=== PATIENT | male | born 1965 | race Caucasian/White ===

== ENCOUNTER 2024-04-13 19:14 | Emergency (ER) | payer MEDICAID ==
[~2024-04-13] VITALS: Ht 177.8 cm; Wt 68.8 kg
[~2024-04-13 19:14] MED LIST: NICO-687 TD; NO HOME MEDS
[2024-04-13 19:29] LABS: BASOPHILS # (AUTO) 0.1 X10'3 (0-0.2); BASOPHILS % (AUTO) 0.7 % (0-1); EOSINOPHILS # (AUTO) 0.1 X10'3 (0-0.9); EOSINOPHILS % (AUTO) 1.2 % (0-6); HEMATOCRIT 46.5 % (42.0-52.0); HEMOGLOBIN 15.9 g/dl (14.0-17.9); LYMPHOCYTES # (AUTO) 2.5 X10'3 (1.1-4.8); LYMPHOCYTES % (AUTO) 33.8 % (21-51); MEAN CORPUSCULAR HEMOGLOBIN 32.5 PG (27.0-31.0); MEAN CORPUSCULAR HGB CONC 34.3 g/dL (33.0-36.5); MEAN CORPUSCULAR VOLUME 94.8 FL (78-98); MEAN PLATELET VOLUME 7.1 FL (7.4-10.4); MONOCYTES # (AUTO) 0.6 X10'3 (0-0.9); MONOCYTES % (AUTO) 7.9 % (2-12); NEUTROPHILS # (AUTO) 4.2 X10'3 (1.8-7.7); NEUTROPHILS % (AUTO) 56.4 % (42-75); PLATELET COUNT 268 X10'3 (140-440); RED CELL DISTRIBUTION WIDTH 14.4 % (11.5-14.5); WHITE BLOOD COUNT 7.5 X10'3 (4.5-11.0)
[2024-04-13 19:35] VITALS: TEMP 98
[2024-04-13 19:49] LABS: ALBUMIN 3.4 G/DL (3.4-5.0); ANION GAP 10 (8-16); BLOOD UREA NITROGEN 2 MG/DL (7-18); BUN/CREATININE RATIO 2.8 (10.0-20.0); CHLORIDE 97 MMOL/L (99-107); CREATININE 0.72 MG/DL (0.60-1.10); POTASSIUM 3.6 MMOL/L (3.5-5.1); PRO BRAIN NATRIURETIC PEPTIDE < 30 PG/ML (0-125); SODIUM 134 MMOL/L (135-145); eCRCL 106 ML/MIN; eGFR > 90 ML/MIN
[2024-04-13 19:50] LABS: GLUCOSE 116 MG/DL (70-104)
[2024-04-13 20:01] LABS: ETHANOL 244 MG/DL (<10)
[2024-04-13] MEDS: meclizine 12.5mg tablet PO ONE (20:43)
[2024-04-13] MEDS: chlordiazePOXIDE 25mg capsule PO ONE (20:44)
[2024-04-13] MEDS ORDERED: NALT50TA PO (20:45)
[2024-04-13] MEDS ORDERED: CHLO25CA10 PO (20:45)
[2024-04-13 21:07] VITALS: BP 137/95; PULSE 89; RESP 18; O2SAT 99
== END 2024-04-13 21:13 | disposition home or self-care (01) ==
LOC: ER 19:15
DX: F10.10 Alcohol abuse, uncomplicated (principal); R26.89 Other abnormalities of gait and mobility; R06.6 Hiccough; R42 Dizziness and giddiness; J45.909 Unspecified asthma, uncomplicated; F17.210 Nicotine dependence, cigarettes, uncomplicated; Z88.0 Allergy status to penicillin; Z79.899 Other long term (current) drug therapy; Z72.89 Other problems related to lifestyle
CPT/HCPCS: 36415; 70450; 71045; 80048; 80320; 82948; 83880; 84484; 85025; 93005; 99285; J8597